=== PATIENT | female | born 1965 | race Caucasian/White ===

== ENCOUNTER 2024-02-11 13:27 | Outpatient (CLI) | payer OTHER, SELFPAY | END 2024-02-11 13:28 | disposition home or self-care (01) | PROVIDERS: PCP Physician Assistant Medical; Visit Provider Obstetrics & Gynecology | DX: M81.0 Age-related osteoporosis without current pathological fracture (principal); N95.1 Menopausal and female climacteric states; R53.83 Other fatigue; Z13.29 Encounter for screening for other suspected endocrine disorder | CPT/HCPCS: 82306; 82670; 84403; 84443 ==

== ENCOUNTER 2025-03-16 10:03 | Outpatient (CLI) | payer OTHER, SELFPAY | END 2025-03-16 10:04 | disposition home or self-care (01) | PROVIDERS: PCP Physician Assistant Medical; Visit Provider Obstetrics & Gynecology | DX: M81.0 Age-related osteoporosis without current pathological fracture (principal); N95.1 Menopausal and female climacteric states; R53.83 Other fatigue | CPT/HCPCS: 82306; 82670; 82728; 84146; 84270; 84402; 84403 ==